=== PATIENT | female | born 1975 | race Caucasian/White ===

== ENCOUNTER → 2024-08-15 15:56 | Outpatient (REF) | payer OTHER, SELFPAY | LOC: HWRCS 15:56 | PROVIDERS: ATTENDING PHYSICIAN Internal Medicine Cardiovascular Disease; FAMILY PHYSICIAN Family Medicine | DX: I42.0 Dilated cardiomyopathy (principal); Q23.1 Congenital insufficiency of aortic valve; I77.89 Other specified disorders of arteries and arterioles | CPT/HCPCS: 93306 ==